=== PATIENT | female | born 1945 | race Caucasian/White ===

== ENCOUNTER 2017-06-08 11:48 | Inpatient (IN) | payer MEDICARE ==
[~2017-06-08] VITALS: Ht 157.5 cm; Wt 82.2 kg
[2017-06-08] VITALS (8 sets, daily range): BP systolic 136–165; BP diastolic 61–95
[~2017-06-08 11:48] MED LIST: BISO10TA PO; CHLO25TA3 PO; LEVO75TA4 PO; LOSA100T29 PO; OMEP40CA37 PO; PARO-37 PO; keytruda IV
[2017-06-08] MEDS ORDERED: PROMETHAZINE HCL 25 MG/ML 1ML AMPULE IM ONE (11:54)
[2017-06-08 12:05] LABS: BASOPHILS % (AUTO) 0.2 % (0.0-5.0); EOSINOPHILS % (AUTO) 0.4 % (0.0-8.0); HEMATOCRIT 37.4 % (36-48); LYMPHOCYTES % (AUTO) 24.2 % (21.0-51.0); MEAN CORPUSCULAR HEMOGLOBIN 31.3 pg (27.0-33.0); MEAN CORPUSCULAR HGB CONC 35.2 g/dL (32.0-36.0); MONOCYTES % (AUTO) 12.2 % (3.0-13.0); PLATELET COUNT (AUTO) 218 K/uL (130-400); WHITE BLOOD COUNT (AUTO) 4.7 K/uL (4.8-10.8)
[2017-06-08 12:14] LABS: CARBON DIOXIDE 24 mmol/L (21-32); CHLORIDE 98 mmol/L (101-111); CREATININE 1.5 mg/dL (0.5-1.5); GLOMERULAR FILTR. RATE CALC 36 mL/min (>60); GLUCOSE,RANDOM 141 mg/dL (70-105); SODIUM SERUM 136 mmol/L (136-145); UREA NITROGEN, BLOOD 18 mg/dL (7-18)
[2017-06-08 12:18] LABS: PARTIAL THROMBOPLASTIN TIME 26.1 SEC (26.3-35.5); PROTHROMBIN TIME 10.5 SEC (9.6-11.6)
[2017-06-08 12:29] LABS: ALANINE AMINOTRANSFERASE 62 U/L (12-78); AMYLASE 99 U/L (25-115); ASPARTATE AMINOTRANSFERASE 41 U/L (10-37); BILIRUBIN,TOTAL 0.5 mg/dL (0.2-1.0); CREATINE KINASE MB < 0.5 ng/mL (0.5-3.6); CREATINE KINASE, TOTAL 60 U/L (21-232); LIPASE 248 U/L (114-286); TOTAL PROTEIN, SERUM 6.9 g/dL (6.0-8.3)
[2017-06-08] MEDS ORDERED: MORPHINE SULFATE 2 MG/ML 1ML SYG IV PRN (13:45)
[2017-06-08] MEDS ORDERED: ACETAMINOPHEN 325 MG TAB PO PRN ×2 (13:45)
[2017-06-08] MEDS ORDERED: SODIUM CHLORIDE 0.9% 1000ML 1,000 ML IV SCH (13:45)
[2017-06-08] MEDS ORDERED: POTASSIUM CHLORIDE 20 MEQ ERTAB PO PRN (13:45)
[2017-06-08] MEDS ORDERED: ACETAMINOPHEN-CODEINE 300/30MG TAB PO PRN ×2 (13:45)
[2017-06-08] MEDS ORDERED: GUAIFENESIN-DM 200/20 MG 10 ML PO PRN (13:45)
[2017-06-08] MEDS ORDERED: POTASSIUM CHLORIDE 10% ELIXIR 20 MEQ/15 ML UDCUP PO PRN (13:45)
[2017-06-08] MEDS ORDERED: LACTULOSE 20 GM/30 ML UDCUP PO PRN (13:45)
[2017-06-08] MEDS ORDERED: MORPHINE SULFATE 4 MG/1ML SYG IV PRN (13:45)
[2017-06-08] MEDS ORDERED: MAG HYDROX/AL HYDROX/SIMETH ES 30 ML SUSP UDCUP PO PRN (13:45)
[2017-06-08] MEDS ORDERED: NITROGLYCERIN 0.4 MG SL TAB SL PRN (13:45)
[2017-06-08] MEDS ORDERED: LORAZEPAM 2 MG/ML 1 ML VIAL ONE (13:50)
[2017-06-08] MEDS ORDERED: GADOBENATE DIMEGLUMINE 10 ML IV ONE (14:28)
[2017-06-08] MEDS: HYDRALAZINE HCL 20 MG/ML VIAL IV PRN (16:34)
[2017-06-08] MEDS: METOCLOPRAMIDE 10 MG/2 ML VIAL IVP SCH (16:34)
[2017-06-08] MEDS ORDERED: AMLO10TA2 PO (16:58)
[2017-06-08] MEDS ORDERED: TRAM2TAB PO (17:10)
[2017-06-08] MEDS ORDERED: DABR75CA PO (17:10)
[2017-06-08] MEDS ORDERED: SENN-2 PO (17:10)
[2017-06-08] MEDS ORDERED: FOLI1TAB15 PO (17:10)
[2017-06-08] MEDS ORDERED: ASPI-1181 PO (17:10)
[2017-06-08] MEDS ORDERED: ACET325T51 PO (17:10)
[2017-06-08] MEDS ORDERED: ATOR40TA71 PO (17:10)
[2017-06-08] MEDS: DEXAMETHASONE SOD PHOSPHATE 4 MG/ML 1ML VIAL IVP SCH ×2 (17:59→23:28)
[2017-06-08] MEDS: POTASSIUM CHLORIDE 20MEQ/100ML 100 ML IV PRN ×2 (18:00→23:02)
[2017-06-08] MEDS: LIDOCAINE HCL-MPF 1% 2ML VIAL IVP PRN ×2 (18:01→23:36)
[2017-06-08] MEDS: FAMOTIDINE/PF 20 MG/2 ML VIAL IV SCH (20:52)
[2017-06-09] VITALS (24 sets, daily range): BP systolic 118–153; BP diastolic 61–86
[2017-06-09] MEDS ORDERED: MAGNESIUM 2GM PREMIX 50ML 50 ML IV PRN
[2017-06-09 04:06] LABS: HEMATOCRIT 37.3 % (36-48); MEAN CORPUSCULAR HGB CONC 33.8 g/dL (32.0-36.0); MEAN CORPUSCULAR VOLUME 88.7 fL (79-99); PLATELET COUNT (AUTO) 201 K/uL (130-400); RED BLOOD CELL COUNT(AUTO) 4.21 MIL/uL (4.00-5.50); RED CELL DISTRIBUTION WIDTH 14.4 % (11.0-15.5); WHITE BLOOD COUNT (AUTO) 4.5 K/uL (4.8-10.8)
[2017-06-09 04:24] LABS: CREATININE 1.1 mg/dL (0.5-1.5); POTASSIUM 4.6 mmol/L (3.5-5.1)
[2017-06-09] MEDS: DEXAMETHASONE SOD PHOSPHATE 4 MG/ML 1ML VIAL IVP SCH ×3 (05:25→17:16)
[2017-06-09] MEDS: METOCLOPRAMIDE 10 MG/2 ML VIAL IVP SCH ×3 (06:36→17:16)
[2017-06-09] MEDS: FAMOTIDINE/PF 20 MG/2 ML VIAL IV SCH ×2 (08:24→20:17)
[2017-06-09 18:45] LABS: APPEARANCE,URINE CLOUDY (CLEAR); BILIRUBIN,URINE NEGATIVE (NEGATIVE); COLOR,URINE YELLOW (YELLOW); GLUCOSE, URINE (UA) NEGATIVE (NEGATIVE); KETONES,URINE 15 mg/dL (NEGATIVE); LEUKOCYTE ESTERASE ,URINE NEGATIVE (NEGATIVE); NITRATE,URINE NEGATIVE (NEGATIVE); OCCULT BLOOD,URINE NEGATIVE (NEGATIVE); PROTEIN,URINE NEGATIVE (NEGATIVE); UROBILINOGEN,URINE 0.2 mg/dL (0.2-1.0)
[2017-06-09 20:14] LABS: AMORPHOUS SEDIMENT,UR Few /LPF (None Seen); BACTERIA,URINE Moderate /HPF (None Seen); RBC,URINE 0-1 /HPF (0-1); SQUAMOUS EPITHELIAL CELL,UR Rare /LPF (0-2); WBC,URINE 0-1 /HPF (0-1)
[2017-06-09 20:15] LABS: MUCUS,URINE Rare LPF (None Seen)
[2017-06-09] MEDS: LEVETIRACETAM 500 MG TABLET PO SCH (21:15)
[2017-06-09] MEDS ORDERED: LEVETIRACETAM 500 MG TABLET PO ONE (21:21)
[2017-06-10] VITALS (12 sets, daily range): BP systolic 112–172; BP diastolic 56–78
[2017-06-10 04:02] LABS: HEMATOCRIT 36.3 % (36-48); MEAN CORPUSCULAR HEMOGLOBIN 30.7 pg (27.0-33.0); MEAN CORPUSCULAR HGB CONC 34.2 g/dL (32.0-36.0); MEAN CORPUSCULAR VOLUME 89.7 fL (79-99); NUCLEATED RED BLOOD CELLS 0.1 % (0.0-0.19); PLATELET COUNT (AUTO) 206 K/uL (130-400); RED BLOOD CELL COUNT(AUTO) 4.05 MIL/uL (4.00-5.50); RED CELL DISTRIBUTION WIDTH 14.4 % (11.0-15.5); WHITE BLOOD COUNT (AUTO) 7.4 K/uL (4.8-10.8)
[2017-06-10 04:11] LABS: CREATININE 1.1 mg/dL (0.5-1.5); POTASSIUM 4.7 mmol/L (3.5-5.1)
[2017-06-10] MEDS: HYDRALAZINE HCL 20 MG/ML VIAL IV PRN (05:19)
[2017-06-10] MEDS: LEVOTHYROXINE 75 MCG TABLET PO SCH (07:01)
[2017-06-10] MEDS: METOCLOPRAMIDE 10 MG/2 ML VIAL IVP SCH ×3 (07:01→18:02)
[2017-06-10] MEDS: TRAMETINIB DIMETHYL SULFOXIDE 2 MG PO SCH (07:30)
[2017-06-10] MEDS: DABRAFENIB MESYLATE 75 MG PO SCH (07:30)
[2017-06-10] MEDS: FAMOTIDINE/PF 20 MG/2 ML VIAL IV SCH ×2 (08:25→23:45)
[2017-06-10] MEDS: ONDANSETRON HCL 4 MG/2 ML VIAL IV PRN (08:25)
[2017-06-10] MEDS: LOSARTAN 100 MG TABLET PO SCH (11:53)
[2017-06-10] MEDS: LEVETIRACETAM 500 MG TABLET PO SCH ×2 (11:53→23:45)
[2017-06-10] MEDS: AMLODIPINE BESYLATE 5 MG TAB PO SCH (11:53)
[2017-06-10] MEDS: FOLIC ACID 1 MG TABLET PO SCH (11:53)
[2017-06-10] MEDS: SENNOSIDES 8.6 MG TABLET PO SCH (11:54)
[2017-06-10] MEDS ORDERED: PAROXETINE HCL 20 MG TABLET PO SCH (21:00)
[2017-06-10] MEDS ORDERED: ATORVASTATIN CALCIUM 40 MG TABLET PO SCH (21:00)
[2017-06-11 03:10] VITALS: BP 129/74
[2017-06-11 05:10] LABS: CREATININE 1.1 mg/dL (0.5-1.5); POTASSIUM 3.9 mmol/L (3.5-5.1)
[2017-06-11] MEDS: ONDANSETRON HCL 4 MG/2 ML VIAL IV PRN (05:30)
[2017-06-11] MEDS: LEVOTHYROXINE 75 MCG TABLET PO SCH (06:22)
[2017-06-11] MEDS: METOCLOPRAMIDE 10 MG/2 ML VIAL IVP SCH ×3 (06:22→16:27)
[2017-06-11] MEDS: DABRAFENIB MESYLATE 75 MG PO SCH (06:34)
[2017-06-11] MEDS: TRAMETINIB DIMETHYL SULFOXIDE 2 MG PO SCH (06:35)
[2017-06-11 07:24] VITALS: BP 153/72
[2017-06-11] MEDS ORDERED: ASPIRIN 81 MG EC TAB PO SCH (09:00)
[2017-06-11] MEDS: LOSARTAN 100 MG TABLET PO SCH (09:50)
[2017-06-11] MEDS: SENNOSIDES 8.6 MG TABLET PO SCH (09:50)
[2017-06-11] MEDS: FOLIC ACID 1 MG TABLET PO SCH (09:50)
[2017-06-11] MEDS: LEVETIRACETAM 500 MG TABLET PO SCH (09:50)
[2017-06-11] MEDS: FAMOTIDINE/PF 20 MG/2 ML VIAL IV SCH (09:51)
[2017-06-11] MEDS: AMLODIPINE BESYLATE 5 MG TAB PO SCH (09:51)
[2017-06-11 10:47] VITALS: BP 153/87
[2017-06-11 16:35] VITALS: BP 129/69
[2017-06-11] MEDS ORDERED: SCOPOLAMINE HYDROBROMIDE 1 EACH ADH..PATCH TD SCH (16:45)
== END 2017-06-11 20:10 | DRG 54 ==
LOC: EDH 11:48 → EDHIP 13:45 → 2CH 16:14 → 3BH 06-10 18:47
PROVIDERS: ADMIT Internal Medicine; ATTEND Internal Medicine
DX: C79.31 Secondary malignant neoplasm of brain (principal); I61.1 Nontraumatic intracerebral hemorrhage in hemisphere, cortical; C78.7 Secondary malignant neoplasm of liver and intrahepatic bile duct; E86.0 Dehydration; C43.9 Malignant melanoma of skin, unspecified; E83.42 Hypomagnesemia; E87.6 Hypokalemia; E03.9 Hypothyroidism, unspecified; E78.5 Hyperlipidemia, unspecified; I10 Essential (primary) hypertension; Z79.899 Other long term (current) drug therapy; Z88.0 Allergy status to penicillin; Z90.710 Acquired absence of both cervix and uterus; Z88.8 Allergy status to other drugs, medicaments and biological substances; Z92.21 Personal history of antineoplastic chemotherapy; Z92.3 Personal history of irradiation; R51 Headache
CPT/HCPCS: 36415; 70450; 70544; 70547; 70553; 80048; 80053; 81001; 82150; 82550; 82553; 82948; 83690; 83735; 84484; 85025; 85027; 85610; 85730; 93005; 93306; 93880; 99291; A9577; J0360; J1100; J2060; J2405; J2550; J2765; J3475; J3480; J3490